=== PATIENT | female | born 1945 | race Caucasian/White ===

== ENCOUNTER 2021-04-04 16:32 | Emergency (ER) | payer MEDICARE, OTHER ==
[~2021-04-04] VITALS: Ht 162.6 cm; Wt 80.9 kg
[2021-04-04 17:21] VITALS: BP 164/67
[2021-04-04] MEDS ORDERED: LIDOcaine 1% 30ml preserv. free vial IJ ONE (17:35)
[2021-04-04] MEDS ORDERED: CEPH250T PO (17:45)
== END 2021-04-04 19:09 | disposition home or self-care (01) ==
LOC: ER 16:33
DX: S91.114A Laceration without foreign body of right lesser toe(s) without damage to nail, initial encounter (principal); Z88.8 Allergy status to other drugs, medicaments and biological substances; Z79.2 Long term (current) use of antibiotics; W45.8XXA Other foreign body or object entering through skin, initial encounter; Y93.01 Activity, walking, marching and hiking; Y92.89 Other specified places as the place of occurrence of the external cause; Y99.8 Other external cause status
CPT/HCPCS: 12002; 73660; 99283

== ENCOUNTER 2021-04-20 17:29 | Inpatient (IN) | payer MEDICARE, OTHER ==
[~2021-04-20] VITALS: Ht 162.6 cm; Wt 80.0 kg
[2021-04-20 19:29] LABS: BASOPHILS % (AUTO) 0.4 % (0-1); EOSINOPHILS # (AUTO) 0.2 X10'3 (0-0.9); EOSINOPHILS % (AUTO) 2.3 % (0-6); HEMATOCRIT 40.1 % (35.0-45.0); HEMOGLOBIN 13.4 g/dl (12.0-16.0); LYMPHOCYTES # (AUTO) 1.2 X10'3 (1.1-4.8); LYMPHOCYTES % (AUTO) 13.4 % (21-51); MEAN CORPUSCULAR HEMOGLOBIN 25.7 PG (27.0-31.0); MEAN CORPUSCULAR HGB CONC 33.3 g/dL (33.0-36.5); MEAN CORPUSCULAR VOLUME 77.3 FL (78-98); MEAN PLATELET VOLUME 7.6 FL (7.4-10.4); MONOCYTES # (AUTO) 0.3 X10'3 (0-0.9); MONOCYTES % (AUTO) 3.6 % (2-12); NEUTROPHILS # (AUTO) 7.1 X10'3 (1.8-7.7); NEUTROPHILS % (AUTO) 80.3 % (42-75); PLATELET COUNT 269 X10'3 (140-440); RED CELL DISTRIBUTION WIDTH 14.9 % (11.5-14.5); WHITE BLOOD COUNT 8.8 X10'3 (4.5-11.0)
[2021-04-20 19:52] LABS: ALANINE AMINOTRANSFERASE 21 U/L (12-78); ALBUMIN/GLOBULIN RATIO 1.1 (1.1-1.5); ALKALINE PHOSPHATASE 74 IU/L (46-116); ANION GAP 13 (8-16); ASPARTATE AMINO TRANSFERASE 7 U/L (10-37); BILIRUBIN,TOTAL 0.4 MG/DL (0.1-1.0); BLOOD UREA NITROGEN 12 MG/DL (7-18); BUN/CREATININE RATIO 12.9 (6.6-38.0); C-REACTIVE PROTEIN 1.71 MG/DL (0.0-0.5); CALCIUM 8.8 MG/DL (8.5-10.1); CHLORIDE 103 MMOL/L (99-107); CREATININE 0.93 MG/DL (0.40-0.90); GLUCOSE 143 MG/DL (70-104); POTASSIUM 3.6 MMOL/L (3.5-5.1); SODIUM 139 MMOL/L (135-145); TOTAL CARBON DIOXIDE 22.9 MMOL/L (24-32); TOTAL PROTEIN 7.6 G/DL (6.4-8.2); eGFR 59 ML/MIN
[2021-04-20] MEDS ORDERED: piperacillin/tazo 3.375gm/50ml 50 ML IV ONE (20:45)
[2021-04-20] MEDS ORDERED: normal saline 1000ml 1,000 ML IV ONE (20:45)
[2021-04-20] MEDS ORDERED: vancomycin/NS 1 GM ADD-VANTAGE 250 ML IV ONE (20:45)
[2021-04-20] MEDS ORDERED: temazepam 15mg capsule PO PRN (21:00)
[2021-04-20] MEDS ORDERED: ceFAZolin 1GM/D5W- ADD-VANTAGE 50 ML IV ONE (21:50)
[2021-04-20] MEDS ORDERED: bisacodyl 10mg suppository rectal RC PRN (23:20)
[2021-04-20] MEDS ORDERED: diphenhydrAMINE 50 mg/ml inj IV PRN (23:20)
[2021-04-20] MEDS ORDERED: diphenhydrAMINE 25mg capsule PO PRN (23:20)
[2021-04-20] MEDS ORDERED: HYDROcodone/acetaminophen 5mg/325mg tablet PO PRN (23:20)
[2021-04-20] MEDS ORDERED: mag hydrox/Alum hydrox/simeth 30ml oral suspension PO PRN (23:20)
[2021-04-20] MEDS ORDERED: HYDROmorphone inj. 0.5 MG/0.5 ML DISP.SYRIN IV PRN (23:20)
[2021-04-20] MEDS ORDERED: HYDROcodone/acetaminophen 10/325mg tab PO PRN (23:20)
[2021-04-20] MEDS ORDERED: magnesium hydroxide 30ml (MOM) UD suspension PO PRN (23:20)
[2021-04-20] MEDS ORDERED: acetaminophen 325mg tablet PO PRN ×2 (23:20)
[2021-04-20] MEDS ORDERED: normal saline 1000ml 1,000 ML IV SCH (23:20)
[2021-04-20] MEDS ORDERED: morphine 2 MG/ML inj. syringe IV PRN ×2 (23:20)
[2021-04-20] MEDS ORDERED: acetaminophen 650mg rectal suppository RC PRN (23:20)
[2021-04-20] MEDS ORDERED: ondansetron 4mg rapidly disintigrating tab PO PRN (23:20)
[2021-04-20] MEDS ORDERED: LEVO25TA7 PO (23:46)
[2021-04-20] MEDS ORDERED: EMPA1TAB PO (23:46)
[2021-04-20] MEDS ORDERED: GLIM2TAB6 PO (23:46)
[2021-04-20 23:55] LABS: MAGNESIUM 2.1 MG/DL (1.5-2.4); PHOSPHORUS 4.1 MG/DL (2.3-4.5)
[2021-04-21 00:06] LABS: PARTIAL THROMBOPLASTIN TIME 28 SECONDS (22-32)
--- NOTE | 2021-04-21 00:45 | NUR ---
Patient in room [facility]. I have received report from Andressa Winchester and had the opportunity to ask questions and will assume patient care upon arrival to the unit. Noris Bailey Rn received the report. Addendum: 04/21/21 at 0158 by Kate Miguel RN Amended: Links added.
[2021-04-21] MEDS: ondansetron/PF 4mg/2ml inj IV PRN ×2 (00:58→09:07)
--- NOTE | 2021-04-21 01:15 | NUR ---
Patient in room [facility]. I have received report from oNris Crisostomo and had the opportunity to ask questions and assume patient care. Addendum: 04/21/21 at 0159 by Kate Miguel RN Amended: Links added.
[2021-04-21 01:30] VITALS: BP 139/68
--- NOTE | 2021-04-21 06:05 | NUR ---
Problems reprioritized. Patient report given, questions answered & plan of care reviewed with LIONEL RAMIREZ. Addendum: 04/21/21 at 0605 by Kate Miguel RN Amended: Links added.
[2021-04-21 06:30] VITALS: BP 130/61
--- NOTE | 2021-04-21 06:30 | NUR ---
Patient in room [facility]. I have received report from LIONEL Love and had the opportunity to ask questions and assume patient care.
[2021-04-21 06:40] LABS: BASOPHILS % (AUTO) 0.5 % (0-1); EOSINOPHILS % (AUTO) 0.2 % (0-6); HEMATOCRIT 39.2 % (35.0-45.0); HEMOGLOBIN 12.9 g/dl (12.0-16.0); LYMPHOCYTES # (AUTO) 0.7 X10'3 (1.1-4.8); LYMPHOCYTES % (AUTO) 8.9 % (21-51); MEAN CORPUSCULAR HEMOGLOBIN 25.6 PG (27.0-31.0); MEAN CORPUSCULAR HGB CONC 32.9 g/dL (33.0-36.5); MEAN CORPUSCULAR VOLUME 77.7 FL (78-98); MEAN PLATELET VOLUME 8.2 FL (7.4-10.4); MONOCYTES # (AUTO) 0.3 X10'3 (0-0.9); MONOCYTES % (AUTO) 3.8 % (2-12); NEUTROPHILS # (AUTO) 6.7 X10'3 (1.8-7.7); NEUTROPHILS % (AUTO) 86.6 % (42-75); PLATELET COUNT 203 X10'3 (140-440); RED BLOOD COUNT 5.04 X10'6 (4.20-5.60); RED CELL DISTRIBUTION WIDTH 15.1 % (11.5-14.5); WHITE BLOOD COUNT 7.7 X10'3 (4.5-11.0)
[2021-04-21 06:53] LABS: ALANINE AMINOTRANSFERASE 19 U/L (12-78); ALBUMIN 3.3 G/DL (3.4-5.0); ALKALINE PHOSPHATASE 57 IU/L (46-116); ANION GAP 11 (8-16); ASPARTATE AMINO TRANSFERASE 20 U/L (10-37); BILIRUBIN,TOTAL 0.5 MG/DL (0.1-1.0); BLOOD UREA NITROGEN 10 MG/DL (7-18); BUN/CREATININE RATIO 13.5 (6.6-38.0); CALCIUM 7.8 MG/DL (8.5-10.1); CHLORIDE 105 MMOL/L (99-107); CREATININE 0.74 MG/DL (0.40-0.90); GLUCOSE 160 MG/DL (70-104); SODIUM 137 MMOL/L (135-145); TOTAL CARBON DIOXIDE 20.7 MMOL/L (24-32); TOTAL PROTEIN 6.6 G/DL (6.4-8.2); eGFR 77 ML/MIN
[2021-04-21] MEDS: levoTHYROXINE 25mcg tablet PO SCH (09:02)
[2021-04-21] MEDS: pantoprazole 40mg Tablet.DR PO SCH (09:02)
[2021-04-21] MEDS: docusate sod 100mg capsule PO SCH ×2 (09:02→20:40)
[2021-04-21] MEDS: heparin, porcine 5000 units/ml vial SQ SCH ×2 (09:03→20:46)
[2021-04-21] MEDS: cefazolin/dext.iso 2gm/100ml 100 ML IV SCH ×3 (09:07→16:36)
[2021-04-21 11:00] VITALS: BP 103/67
--- NOTE | 2021-04-21 12:04 | NUR ---
DM consult: Pt with A1c 8.2%, admit with right foot cellulitis with open wound to right second toe. Pt seen at bedside for written and verbal protein and DM nutrition therapy educations. Pt reports she sees an MD q year or more often if needed and takes her medications per rx without issues however infrequently checks her BG levels. Pt states she goes through phases where she'll check her BG levels often then phases where she won't, which is currently where she's at. Pt reports understanding of the importance of checking BG levels as well as maintaining good blood sugar management for wound healing. All of patient's questions were answered at this time. RD contact information provided. Pt reports a good appetite which is evident with documented 75-100% PO intake of first meal. Pt agrees to blueberry yogurt BIDBD, d/w dietary. 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 Food allergies/sensitivities were d/w dietary. Pt denies difficulty chewing/swallowing. With constipation with LBM 04/17. Pt denies nutrition intervention at this time as she is receiving routine bowel care and received PRN MoM today. Will continue to follow. Addendum: 04/21/21 at [address] Amended: Links added.
[2021-04-21] MEDS ORDERED: hydrALAZINE 20mg/ml inj. IV PRN (16:45)
[2021-04-21 18:00] VITALS: BP 119/74
--- NOTE | 2021-04-21 18:30 | NUR ---
Problems reprioritized. Patient report given, questions answered & plan of care reviewed with Mouna Freire RN.
[2021-04-21 20:00] VITALS: BP 119/74
[2021-04-21] MEDS: vancomycin/NS 1 GM ADD-VANTAGE 250 ML IV SCH (20:31)
[2021-04-21] MEDS: lactobacillus rhamnosus 10,000 MMU CELLS/CAPSULE PO SCH (20:40)
[2021-04-22] VITALS: BP 128/76
[2021-04-22] MEDS: cefazolin/dext.iso 2gm/100ml 100 ML IV SCH ×3 (00:24→16:23)
[2021-04-22] MEDS: ondansetron/PF 4mg/2ml inj IV PRN ×2 (01:23→20:27)
--- NOTE | 2021-04-22 06:15 | NUR ---
Patient in room [facility]. I have received report from Mouna Freire RN and had the opportunity to ask questions and assume patient care.
[2021-04-22 06:30] VITALS: BP 118/63
--- NOTE | 2021-04-22 06:30 | NUR ---
Problems reprioritized. Patient report given, questions answered & plan of care reviewed with ASHLEY RN.
[2021-04-22 06:35] LABS: BASOPHILS % (AUTO) 0.3 % (0-1); EOSINOPHILS % (AUTO) 0.1 % (0-6); HEMATOCRIT 39.5 % (35.0-45.0); LYMPHOCYTES # (AUTO) 0.9 X10'3 (1.1-4.8); LYMPHOCYTES % (AUTO) 12.3 % (21-51); MEAN CORPUSCULAR HEMOGLOBIN 25.6 PG (27.0-31.0); MEAN CORPUSCULAR VOLUME 77.7 FL (78-98); MEAN PLATELET VOLUME 7.6 FL (7.4-10.4); MONOCYTES # (AUTO) 0.3 X10'3 (0-0.9); MONOCYTES % (AUTO) 4.4 % (2-12); NEUTROPHILS # (AUTO) 5.8 X10'3 (1.8-7.7); NEUTROPHILS % (AUTO) 82.9 % (42-75); PLATELET COUNT 204 X10'3 (140-440); RED BLOOD COUNT 5.08 X10'6 (4.20-5.60); RED CELL DISTRIBUTION WIDTH 14.5 % (11.5-14.5)
[2021-04-22 06:59] LABS: ALANINE AMINOTRANSFERASE 28 U/L (12-78); ALBUMIN 3.2 G/DL (3.4-5.0); ALBUMIN/GLOBULIN RATIO 0.9 (1.1-1.5); ALKALINE PHOSPHATASE 64 IU/L (46-116); ANION GAP 13 (8-16); ASPARTATE AMINO TRANSFERASE 27 U/L (10-37); BILIRUBIN,TOTAL 0.5 MG/DL (0.1-1.0); BLOOD UREA NITROGEN 13 MG/DL (7-18); BUN/CREATININE RATIO 15.3 (6.6-38.0); CALCIUM 7.9 MG/DL (8.5-10.1); CHLORIDE 104 MMOL/L (99-107); CREATININE 0.85 MG/DL (0.40-0.90); GLUCOSE 162 MG/DL (70-104); POTASSIUM 4.1 MMOL/L (3.5-5.1); SODIUM 139 MMOL/L (135-145); TOTAL CARBON DIOXIDE 22.1 MMOL/L (24-32); TOTAL PROTEIN 6.7 G/DL (6.4-8.2); eGFR 66 ML/MIN
[2021-04-22] MEDS: docusate sod 100mg capsule PO SCH ×2 (08:48→19:33)
[2021-04-22] MEDS: heparin, porcine 5000 units/ml vial SQ SCH ×2 (08:48→19:33)
[2021-04-22] MEDS: pantoprazole 40mg Tablet.DR PO SCH (08:48)
[2021-04-22] MEDS: levoTHYROXINE 25mcg tablet PO SCH (08:48)
[2021-04-22] MEDS: lactobacillus rhamnosus 10,000 MMU CELLS/CAPSULE PO SCH ×2 (08:48→19:33)
[2021-04-22 11:00] VITALS: BP 107/53
[2021-04-22] MEDS ORDERED: dextrose 50%-water 50ml dispensing syringe IV PRN ×2 (13:40)
[2021-04-22] MEDS ORDERED: glucagon, human recombinant 1mg kit SUBCUT PRN (13:40)
[2021-04-22] MEDS ORDERED: dextrose ORAL solution 15 GM/59 ML bottle PO PRN ×2 (13:40)
[2021-04-22] MEDS: insulin Lispro (HumaLOG) vial - multi-dose SQ SCH ×2 (15:03→19:39)
--- NOTE | 2021-04-22 18:10 | NUR ---
Problems reprioritized. Patient report given, questions answered & plan of care reviewed with LIONEL Pascual.
--- NOTE | 2021-04-22 18:20 | NUR ---
Patient in room [facility]. I have received report from LIONEL Koenig and had the opportunity to ask questions and assume patient care.
[2021-04-22 18:30] VITALS: BP 141/60
[2021-04-22] MEDS: vancomycin/NS 1 GM ADD-VANTAGE 250 ML IV SCH (19:37)
[2021-04-22] MEDS ORDERED: insulin glargine (Lantus) pen - multi-dose SQ SCH (21:00)
[2021-04-23] VITALS: BP 117/49
[2021-04-23] MEDS: cefazolin/dext.iso 2gm/100ml 100 ML IV SCH ×2 (00:04→07:56)
--- NOTE | 2021-04-23 06:37 | NUR ---
Problems reprioritized. Patient report given, questions answered & plan of care reviewed with LIONEL Ortega.
[2021-04-23 07:00] VITALS: BP 131/56
[2021-04-23 07:02] LABS: BASOPHILS % (AUTO) 0.5 % (0-1); EOSINOPHILS # (AUTO) 0.1 X10'3 (0-0.9); EOSINOPHILS % (AUTO) 1.9 % (0-6); HEMATOCRIT 37.8 % (35.0-45.0); HEMOGLOBIN 12.4 g/dl (12.0-16.0); LYMPHOCYTES # (AUTO) 1.3 X10'3 (1.1-4.8); LYMPHOCYTES % (AUTO) 23.3 % (21-51); MEAN CORPUSCULAR HEMOGLOBIN 25.9 PG (27.0-31.0); MEAN CORPUSCULAR HGB CONC 32.9 g/dL (33.0-36.5); MEAN CORPUSCULAR VOLUME 78.7 FL (78-98); MEAN PLATELET VOLUME 7.9 FL (7.4-10.4); MONOCYTES # (AUTO) 0.4 X10'3 (0-0.9); NEUTROPHILS # (AUTO) 3.7 X10'3 (1.8-7.7); NEUTROPHILS % (AUTO) 66.3 % (42-75); PLATELET COUNT 189 X10'3 (140-440); RED CELL DISTRIBUTION WIDTH 15.2 % (11.5-14.5); WHITE BLOOD COUNT 5.6 X10'3 (4.5-11.0)
[2021-04-23 07:45] LABS: ALANINE AMINOTRANSFERASE 23 U/L (12-78); ALBUMIN 3.1 G/DL (3.4-5.0); ALBUMIN/GLOBULIN RATIO 0.9 (1.1-1.5); ALKALINE PHOSPHATASE 60 IU/L (46-116); ANION GAP 12 (8-16); ASPARTATE AMINO TRANSFERASE 18 U/L (10-37); BILIRUBIN,TOTAL 0.3 MG/DL (0.1-1.0); BLOOD UREA NITROGEN 18 MG/DL (7-18); BUN/CREATININE RATIO 23.7 (6.6-38.0); CALCIUM 8.2 MG/DL (8.5-10.1); CHLORIDE 107 MMOL/L (99-107); CREATININE 0.76 MG/DL (0.40-0.90); GLUCOSE 150 MG/DL (70-104); SODIUM 142 MMOL/L (135-145); TOTAL CARBON DIOXIDE 23.5 MMOL/L (24-32); TOTAL PROTEIN 6.7 G/DL (6.4-8.2); eGFR 75 ML/MIN
[2021-04-23] MEDS: docusate sod 100mg capsule PO SCH (07:55)
[2021-04-23] MEDS: levoTHYROXINE 25mcg tablet PO SCH (07:55)
[2021-04-23] MEDS: pantoprazole 40mg Tablet.DR PO SCH (07:55)
[2021-04-23] MEDS: lactobacillus rhamnosus 10,000 MMU CELLS/CAPSULE PO SCH (07:55)
[2021-04-23] MEDS: heparin, porcine 5000 units/ml vial SQ SCH (07:56)
[2021-04-23] MEDS: insulin Lispro (HumaLOG) vial - multi-dose SQ SCH (09:22)
[2021-04-23] MEDS ORDERED: LEVO750T46 PO (10:42)
[2021-04-23 12:00] VITALS: BP 123/74
--- NOTE | 2021-04-23 12:20 | NUR ---
Patients discharge instructions reviewed with patient and patient verbalized understanding. Patients IV dc'd canula intact. Wound care saw patient. Supplies sent home with patient for wound care. Dr Rosalio Harper phone number given to patient per Radha with wound care request. Patient taken to vehicle with via wheelchair.
--- NOTE | 2021-04-23 13:11 | NUR ---
Wound care was asked to see patient regarding her right 2nd toe. She had a traumatic injury a few weeks ago that required sutures and antibiotics due to her being diabetic. Since the removal of the sutures she hit the toe on a watermelon at the store. She was admitted to rule out osteomylitis. Dr. Christian Harper saw the patient and confirmed no osteo, but an acute fracture was present. Her toe is red, slight warmth, bruised looking with signs of healing skin where previous injury was. I cleaned with wound cleanser, applied betadine to the toe, and a soft gauze roll. Explained to do this 1-2 times a day. I encouraged her to get an appointment with the outpatient wound center with a day the Orthopedist doctor is on. I also encouraged a follow up appt with Dr. Harper to monitor the toe due to her diabetes. Her A1C was 8.2 on this admission, may be from injury but better control is needed. Supplies given to patient. She understands all instructions for wound care and symptoms to report to physician or the ER.
[2021-04-23] MEDS ORDERED: VANCOMYCIN LEVEL IV ONE (19:30)
== END 2021-04-23 12:20 | disposition home or self-care (01) | DRG 638 ==
LOC: ER 17:30 → ED HOLD 23:19 → SUR 3N 04-21 00:50
PROVIDERS: ADMIT Family Medicine; ATTEND Family Medicine
DX: E11.69 Type 2 diabetes mellitus with other specified complication (principal); L03.115 Cellulitis of right lower limb; E87.2 Acidosis; M86.8X7 Other osteomyelitis, ankle and foot; L02.611 Cutaneous abscess of right foot; S92.911B Unspecified fracture of right toe(s), initial encounter for open fracture; E11.65 Type 2 diabetes mellitus with hyperglycemia; E03.9 Hypothyroidism, unspecified; X58.XXXA Exposure to other specified factors, initial encounter; Z20.822 Contact with and (suspected) exposure to COVID-19; I10 Essential (primary) hypertension; Z79.84 Long term (current) use of oral hypoglycemic drugs; Z79.899 Other long term (current) drug therapy; Z88.0 Allergy status to penicillin; Z88.8 Allergy status to other drugs, medicaments and biological substances; Z91.041 Radiographic dye allergy status; Z91.018 Allergy to other foods; Y93.89 Activity, other specified; Y92.89 Other specified places as the place of occurrence of the external cause; Y99.8 Other external cause status
CPT/HCPCS: 36415; 73660; 73700; 73718; 80053; 82948; 83036; 83605; 83735; 83880; 84100; 84145; 84443; 85025; 85610; 85651; 85730; 86140; 87040; 87070; 87077; 87081; 87186; 87635; 96365; 96366; 96367; 99285; C9803; G0378; J0690; J1644; J1815; J2405; J3370; J7030

== ENCOUNTER 2021-05-04 11:59 | Day surgery (SDC) | payer MEDICARE, OTHER ==
[2021-04-30 11:00] LABS: BASOPHILS % (AUTO) 0.5 % (0-1); EOSINOPHILS # (AUTO) 0.2 X10'3 (0-0.9); EOSINOPHILS % (AUTO) 2.3 % (0-6); LYMPHOCYTES # (AUTO) 1.4 X10'3 (1.1-4.8); MEAN CORPUSCULAR HEMOGLOBIN 25.7 PG (27.0-31.0); MEAN CORPUSCULAR HGB CONC 33.6 g/dL (33.0-36.5); MEAN CORPUSCULAR VOLUME 76.6 FL (78-98); MEAN PLATELET VOLUME 7.3 FL (7.4-10.4); MONOCYTES # (AUTO) 0.4 X10'3 (0-0.9); MONOCYTES % (AUTO) 4.7 % (2-12); NEUTROPHILS # (AUTO) 6.3 X10'3 (1.8-7.7); NEUTROPHILS % (AUTO) 75.5 % (42-75); PRE OP HEMATOCRIT 37.3 % (35.0-45.0); PRE OP HEMOGLOBIN 12.5 g/dL (12.0-16.0); PRE OP PLATELET COUNT 403 X10'3 (140-440); RED BLOOD COUNT 4.87 X10'6 (4.20-5.60); RED CELL DISTRIBUTION WIDTH 14.5 % (11.5-14.5)
[2021-04-30 11:16] LABS: ALBUMIN 3.3 G/DL (3.4-5.0); ALBUMIN/GLOBULIN RATIO 0.8 (1.1-1.5); ALKALINE PHOSPHATASE 70 IU/L (46-116); BLOOD UREA NITROGEN 15 MG/DL (7-18); BUN/CREATININE RATIO 17.6 (6.6-38.0); C-REACTIVE PROTEIN 5.13 MG/DL (0.0-0.5); CALCIUM 8.8 MG/DL (8.5-10.1); CHLORIDE 103 MMOL/L (99-107); CREATININE 0.85 MG/DL (0.40-0.90); PRE OP ALT 15 U/L (30-65); PRE OP ANION GAP 11 (8-16); PRE OP AST 13 U/L (10-37); PRE OP BILIRUB, TOTAL 0.4 MG/DL (0.0-1.0); PRE OP GLUCOSE 155 MG/DL (70-104); PRE OP POTASSIUM 4.1 MMOL/L (3.4-5.1); PRE OP SODIUM 138 MMOL/L (135-145); TOTAL CARBON DIOXIDE 24.3 MMOL/L (24-32); TOTAL PROTEIN 7.5 G/DL (6.4-8.2); eGFR 66 ML/MIN
[2021-05-04] VITALS (7 sets, daily range): BP systolic 127–142; BP diastolic 52–70
[~2021-05-04] VITALS: Ht 162.6 cm; Wt 78.0 kg
[~2021-05-04 11:59] MED LIST: EMPA1TAB PO; GLIM2TAB6 PO; LEVO25TA7 PO; LEVO500T89 PO; cefazolin/dext.iso 2gm/100ml IV ONE; famotidine 20mg tablet PO ONE; ringers solution, lacted 1,000 ML IV SCH; scopolamine 1mg/72 hr patch TD SCH
[2021-05-04] MEDS ORDERED: BUPIVAcaine 0.5% inj/PF 30 ML ONE (13:58)
[2021-05-04] MEDS ORDERED: bacitracin 15gm ointment TP ONE (13:58)
[2021-05-04] MEDS ORDERED: ondansetron/PF 4mg/2ml inj IV PRN (15:25)
[2021-05-04] MEDS ORDERED: morphine 4 MG/ML inj SYRINge IV PRN (15:25)
[2021-05-04] MEDS ORDERED: morphine 2 MG/ML inj. syringe IV PRN (15:25)
[2021-05-04] MEDS ORDERED: labetalol 20mg/4ml (5mg/ml) syringe IV PRN (15:25)
[2021-05-04] MEDS ORDERED: hydrALAZINE 20mg/ml inj. IV PRN (15:25)
[2021-05-04] MEDS ORDERED: meperidine/PF 25mg/ml syringe IV PRN ×3 (15:25)
[2021-05-04] MEDS ORDERED: acetaminophen 1,000mg/100ml IV 100 ML IV PRN (15:25)
[2021-05-04] MEDS ORDERED: ringers solution, lacted 1,000 ML IV SCH (15:25)
[2021-05-04] MEDS ORDERED: proCHLORperazine 10 MG/2 ml inj IV PRN (15:25)
[2021-05-04] MEDS ORDERED: sevoflurane 250ml liquid IH ONE (15:45)
[2021-05-04] MEDS ORDERED: fentaNYL/PF 50MCG/1 ML 2ML syringe ONE (15:50)
[2021-05-04] MEDS ORDERED: midazolam 1 mg/ML 2ml injection ONE (15:50)
[2021-05-04] MEDS ORDERED: LIDOcaine 2% (20mg/ml) 5ml vial ONE (15:54)
[2021-05-04] MEDS ORDERED: propofol inj 20 ML IV ONE (15:54)
[2021-05-04] MEDS ORDERED: dexamethasone sod phosphate 4mg/ml inj. ONE (15:56)
[2021-05-04] MEDS ORDERED: ondansetron/PF 4mg/2ml inj ONE (15:56)
--- NOTE | 2021-05-04 16:34 | NUR ---
Received from OR via , accompanied by Anesthesiologist DR MEEKS and report given by Anesthesiolgist. AWAKENS TO VOICE. VITALS STABLE. DRESSING DI. ASHLEY PAIN.
--- NOTE | 2021-05-04 17:34 | NUR ---
AWAKE AND ORIENTED. VITALS STABLE. DRESSING DI. ASHLEY PAIN. HOME WITH HER SPOUSE AT THIS TIME.
== END 2021-05-04 17:34 | disposition home or self-care (01) ==
LOC: PAS 11:59
PROVIDERS: ATTEND Podiatrist Foot & Ankle Surgery
DX: E11.69 Type 2 diabetes mellitus with other specified complication (principal); M86.8X7 Other osteomyelitis, ankle and foot; L03.031 Cellulitis of right toe; E11.621 Type 2 diabetes mellitus with foot ulcer; E03.9 Hypothyroidism, unspecified; E66.9 Obesity, unspecified; Z68.29 Body mass index [BMI] 29.0-29.9, adult; Z88.0 Allergy status to penicillin; Z88.8 Allergy status to other drugs, medicaments and biological substances; Z91.041 Radiographic dye allergy status; Z79.899 Other long term (current) drug therapy; Z20.822 Contact with and (suspected) exposure to COVID-19; Z98.41 Cataract extraction status, right eye; Z98.42 Cataract extraction status, left eye; Z98.890 Other specified postprocedural states; Z79.84 Long term (current) use of oral hypoglycemic drugs
CPT/HCPCS: 28825; 36415; 80053; 82948; 85025; 85651; 86140; 93005; A6222; J1100; J2001; J2250; J2405; J2704; J3010; U0003; U0005; Z7506; Z7512; A4618; A6449; J7120